=== PATIENT | male | born 1945 | race Caucasian/White ===

== ENCOUNTER → 2019-08-29 | Outpatient (CLI) | payer MEDICARE ==
--- NOTE | 2019-08-29 07:54 | CT ---
EXAMINATION TYPE: CT chest wo con DATE OF EXAM: 08/29/2019 COMPARISON: 05/22/2012 HISTORY: Solitary Pulmonary Nodule CT DLP: 684 mGycm. Automated Exposure Control for Dose Reduction was Utilized. TECHNIQUE: CT scan of the thorax is performed without IV contrast. FINDINGS: LUNGS: The lungs are grossly clear, there is no concerning parenchymal mass or nodule identified. T here is no pleural effusion or pneumothorax seen. The tracheobronchial tree is patent. Stable calcif ications in the right upper lobe compatible with granuloma. Additional granuloma posterior segment le ft upper lobe also stable. MEDIASTINUM: Lack of IV contrast is noted to limit evaluation for mediastinal and especially hilar ad enopathy. There are no definitive greater than 1 cm hilar or mediastinal lymph nodes. Coronary artery calcification noted. Calcified granulomas are seen in the hilum. Aorta of normal caliber with athero sclerotic changes. OTHER: Hepatic and splenic granuloma are seen. There is degenerative change spine. IMPRESSION: 1. Stable benign-appearing granuloma. 2. Coronary artery calcification and atherosclerotic changes.
== END | disposition home or self-care (01) ==
LOC: RADCTMAIN 07:13
PROVIDERS: ATTEND Nurse Practitioner Adult Health
DX: I25.10 Atherosclerotic heart disease of native coronary artery without angina pectoris (principal)
CPT/HCPCS: 71250

== ENCOUNTER → 2020-12-01 | Outpatient (CLI) | payer MEDICARE ==
--- NOTE | 2020-12-01 15:46 | US ---
EXAMINATION TYPE: US venous doppler duplex LE RT DATE OF EXAM: 12/01/2020 3:38 PM COMPARISON: NONE CLINICAL HISTORY: R Leg edema R60.0. right leg pain SIDE PERFORMED: Right TECHNIQUE: The lower extremity deep venous system is examined utilizing real time linear array sonog ruby with graded compression, doppler sonography and color-flow sonography. VESSELS IMAGED: Common Femoral Vein Deep Femoral Vein Greater Saphenous Vein * Femoral Vein Popliteal Vein Small Saphenous Vein * Proximal Calf Veins (* superficial vessels) Right Leg: Negative for DVT, probable Kang's cyst rt pop fossa= 4.4 x 0.6 x 2.3 cm Attempted to call Dr's office at time of exam, no answer IMPRESSION: 1. Right lower extremity ultrasound negative for deep venous thrombosis. 2. Popliteal cyst
== END | disposition home or self-care (01) ==
LOC: RADUSWWP 15:21
PROVIDERS: ATTEND Family Medicine
DX: R60.0 Localized edema (principal)

== ENCOUNTER → 2020-12-28 | Outpatient (CLI) | payer MEDICARE | END | disposition home or self-care (01) | LOC: RADUSWWP 13:21 | PROVIDERS: ATTEND Family Medicine | DX: M79.604 Pain in right leg (principal); M79.605 Pain in left leg | CPT/HCPCS: 93923 ==

== ENCOUNTER → 2022-01-30 | Outpatient (CLI) | payer MEDICARE ==
--- NOTE | 2022-01-30 11:13 | US ---
EXAMINATION TYPE: US prostate transrectal DATE OF EXAM: 01/30/2022 COMPARISON: NONE CLINICAL HISTORY: R97.20 ELEVATED PSA. This examination was performed using the transrectal probe. EXAM MEASUREMENTS: Gland Size: 6.1 x 3.0 x 5.3cm Volume: 49.4 Predicted PSA: 5.9 Actual PSA (if available):7.7 Heterogeneous gland without obvious mass. No peripheral zone lesions are seen with certainty. Central glandular calcifications. IMPRESSION: Prostatic glandular enlargement with discordant actual PSA. Consider follow-up versus bi opsy. Predicted PSA = volume x 0.12 ng/ml Calculated Volume = 0.5236 x L x W x H
== END | disposition home or self-care (01) ==
LOC: RADUSWWP 09:32
PROVIDERS: ATTEND Family Medicine
DX: N40.0 Benign prostatic hyperplasia without lower urinary tract symptoms (principal); R97.20 Elevated prostate specific antigen [PSA]
CPT/HCPCS: 76872

== ENCOUNTER → 2022-05-15 | Outpatient (CLI) | payer MEDICARE ==
[2022-05-15 22:25] LABS: Basophils # (A) 0.04 X 10*3/uL (0.00-0.10); Basophils % (A) 0.5 %; Eosinophils # (A) 0.36 X 10*3/uL (0.04-0.35); Eosinophils % (A) 4.1 %; HCT 47.4 % (39.6-50.0); HGB 15.7 g/dL (13.0-17.0); Immature Grans, Automated 0.6 %; Lymphocytes # (A) 2.81 X 10*3/uL (0.90-5.00); Lymphocytes % (A) 32.1 %; MCH 29.8 pg (27.0-32.0); MCHC 33.1 g/dL (32.0-37.0); MCV 89.9 fL (80.0-97.0); Mean Platelet Volume 10.2 fL (9.5-12.2); Monocytes # (A) 0.54 X 10*3/uL (0.20-1.00); Monocytes % (A) 6.2 %; NRBC Per 100 WBC 0 /100 WBCS (0.0-0.0); Neutrophils # (A) 4.96 X 10*3/uL (1.80-7.70); Neutrophils % (A) 56.5 %; Platelet Count 266 X 10*3/uL (140-440); RBC 5.27 X 10*6/uL (4.40-5.60); RDW 13.9 % (11.5-14.5); WBC 8.76 X 10*3/uL (4.50-10.00)
[2022-05-15 23:04] LABS: Appearance,Urine Clear (Clear); Bilirubin,Urine Negative (Negative); Blood,Urine Negative (Negative); Color,Urine Yellow (Yellow); Ketones,Urine Trace mg/dL (Negative); Nitrite,Urine Negative (Negative); Specific Gravity,Urine >1.035 (1.001-1.030); Urobilinogen,Urine 0.2 (0.2,1.0)
[2022-05-15 23:07] LABS: African American GFR (CKD) 101.1 (60.0-200.0); Anion Gap 9.9 mmol/L (10.00-18.00); BUN/Creat Ratio 19.39 Ratio (12.00-20.00); Blood Urea Nitrogen 15.3 mg/dL (9.0-27.0); Calcium 9.6 mg/dL (8.7-10.3); Non-African American GFR(CKD) 87.3 (60.0-200.0); Potassium 4.7 mmol/L (3.5-5.5)
== END | disposition home or self-care (01) ==
LOC: LABPAT 14:12
PROVIDERS: ATTEND Urology
DX: Z01.812 Encounter for preprocedural laboratory examination (principal); C61 Malignant neoplasm of prostate; R31.29 Other microscopic hematuria
CPT/HCPCS: 80048; 81003; 85025; 87086

== ENCOUNTER 2022-05-24 10:00 | Day surgery (SDC) | payer MEDICARE ==
--- NOTE | 2022-05-16 12:30 | P.HPIHPCON ---
History of Present Illness H&P Date: 05/16/22 Chief Complaint: Prostate cancer This is a 76-year-old male with history of [place] 7 (3+4_ prostate cancer, . I discussed with him for his prostate cancer the option of radiation versus robotic prostatectomy. Surgery were discussed with him in detail. He agreed to proceed with a robotic radical prostatectomy with possible pelvic lymph node dissection. Discussed with him the risk which includes but not limited to bleeding, infection, urinary incontinence, erectile dysfunction, strictures, potential of cancer recurrence. Potential of needing additional treatments. Discussed also potential of injury to nearby organs which includes but not limited to the bladder, rectum, bowel. Risk of anesthesia was discussed with him which includes but not limited to, heart attack, stroke, blood clots. He understood all the risk and agreed to proceed Consent for Procedure: I have explained the operation/procedure to the patient, including the risks, benefits, side effects, alternative therapies (including not receiving the proposed treatment or service), the likelihood of the patient achieving his/her goals, and potential recuperation problems for the procedure/sedation/analgesia, as well as any blood products, if indicated. I also explained to the patient the risks, benefits and side effects of the alternatives, as well as the risks related to not receiving the proposed procedure, care, treatment, or services. Past Medical History Past Medical History: Diabetes Mellitus, GERD/Reflux, Hyperlipidemia, Hypertension, Musculoskeletal Disorder, Sleep Apnea/CPAP/BIPAP Additional Past Medical History / Comment(s): BACK AND KNEE PAIN., DOES NOT USE C-PAP MACHINE. History of Any Multi-Drug Resistant Organisms: None Reported Past Surgical History: Appendectomy, Back Surgery, Heart Catheterization With Stent Additional Past Surgical History / Comment(s): DESIREE CATARACTS, BACK SURGERY WITH RODS & SCREWS. Past Anesthesia/Blood Transfusion Reactions: No Reported Reaction Date of Last Stent Placement:: 2013 Past Psychological History: No Psychological Hx Reported Past Alcohol Use History: Rare Additional Past Alcohol Use History / Comment(s): SMOKED CIGARETTES FOR 4-5 YEARS, SMOKES A PIPE NOW SINCE 1967. (48YRS) Past Drug Use History: None Reported - Past Family History Sister(s) Family Medical History: Cancer Medications and Allergies Home Medications Medication Instructions Recorded Confirmed Type Aspirin EC [Ecotrin] 81 mg PO DAILY 03/31/15 04/01/15 History Clopidogrel [Plavix] 75 mg PO DAILY 03/31/15 04/01/15 History Insulin Glargine [Lantus] 60 unit SQ HS 03/31/15 04/01/15 History Linagliptin [Tradjenta] 5 mg PO QAM 03/31/15 04/01/15 History Losartan [Cozaar] 25 mg PO HS 03/31/15 04/01/15 History Metoprolol Succinate [Toprol XL] 50 mg PO HS 03/31/15 04/01/15 History Omeprazole [PriLOSEC] 20 mg PO AC-BRKFST 03/31/15 04/01/15 History Simvastatin [Zocor] 40 mg PO HS 03/31/15 04/01/15 History glyBURIDE,MICRONIZED [Glyburide 6 mg PO QAM 03/31/15 04/01/15 History Micronized] metFORMIN HCL [Glucophage] 1,000 mg PO BID 03/31/15 04/01/15 History Hydrocodone/Acetaminophen [[place] 1 each PO Q6HR PRN #40 tab 04/01/15 Rx 5-325] Allergies Allergy/AdvReac Type Severity Reaction Status Date / Time Penicillins Allergy Unknown SORE ON Verified 03/31/15 08:40 NOSE Surgical - Exam - General no distress, no pain - Eyes normal ocular movement, no pale - ENT normal nares, normal mucosa - Respiratory normal expansion, normal respiratory effort - Abdomen Abdomen: soft, non tender - Psychiatric oriented to time, oriented to person, oriented to place Assessment and Plan Assessment: OR for robotic radical prostatectomy and possible pelvic lymph node dissection
[~2022-05-24 10:00] MED LIST: CLINDAMYCIN 600 MG in DEXTROSE 5% IN WATER 50 ML IVPB PRN; DEXAMETHASONE SOD PHOSPHATE 4 MG/ML 1 ML VIAL IV ONE; GENTAMICIN 120 MG in SODIUM CHLORIDE 0.9% 100 ML IVPB PRN; HEPARIN SODIUM,PORCINE/PF 5,000 UNIT/0.5 ML SYRINGE SQ PRN; HYDROmorphone 0.5 MG/0.5 ML SYRINGE IVP PRN; LIDOCAINE 1% (10MG/ML) FOR IV START INTRADERMA PRN; ONDANSETRON 4 MG/2 ML VIAL IVP ONE
[2022-05-24 11:05] LABS: Glucose,Whole Blood 119 mg/dL (70-110)
[2022-05-24] MEDS ORDERED: MIDAZOLAM 2 MG/2 ML VIAL IVP ONE (11:19)
[2022-05-24] MEDS: LACTATED RINGERS 1,000 ML IV SCH (11:39)
[2022-05-24] MEDS ORDERED: HEPARIN SODIUM,PORCINE 5,000 UNIT/ML 1 ML VIAL SQ ONE (11:48)
[2022-05-24] MEDS ORDERED: ROPIVACAINE 5 MG/ML 30 ML VIAL ONE (12:13)
[2022-05-24] MEDS ORDERED: SUCCINYLCHOLINE CHLORIDE 200 MG/10 ML VIAL IV ONE (12:13)
[2022-05-24] MEDS ORDERED: LIDOCAINE 2% INJ 20 MG/ML (2 ML VIAL) ONE (12:13)
[2022-05-24] MEDS ORDERED: GLYCOPYRROLATE 0.2 MG/ML 2 ML VIAL ONE (12:13)
[2022-05-24] MEDS ORDERED: NEOSTIGMINE 1 MG/ML 10 ML VIAL ONE (12:13)
[2022-05-24] MEDS ORDERED: ROCURONIUM 10 MG/ML (5 ML VIAL) IV ONE (12:13)
[2022-05-24] MEDS ORDERED: PHENYLEPHRINE-0.9% NACL SYG 1,000 MCG/10 ML SYRINGE ONE (12:13)
[2022-05-24] MEDS ORDERED: PROPOFOL 10 MG/ML 20 ML VIAL IV ONE (12:13)
[2022-05-24] MEDS ORDERED: MIDAZOLAM 2 MG/2 ML VIAL ONE (12:13)
[2022-05-24] MEDS ORDERED: HYDROmorphone 1 MG/ML 1 ML SYRINGE IVP PRN (12:13)
[2022-05-24] MEDS ORDERED: fentaNYL (PF) 50 MCG/ML 2 ML AMP ONE (12:13)
[2022-05-24] MEDS ORDERED: SODIUM CHLORIDE 0.9% (PF) 10 ML VIAL ONE (12:13)
[2022-05-24] MEDS ORDERED: HYDROmorphone (PF) 1 MG/ML ONE (12:13)
[2022-05-24] MEDS ORDERED: HYDROcodone/APAP 5-325MG 1 EACH TAB PO PRN (12:15)
[2022-05-24] MEDS ORDERED: SODIUM CHLORIDE 0.9% 1,000 ML IV SCH (12:30)
[2022-05-24] MEDS ORDERED: BUPIVACAINE (PF) 0.25% 30 ML VIAL SQ ONE (12:57)
--- NOTE | 2022-05-24 13:19 | P.ANPRN ---
Procedure Note - Anesthesia - Nerve Block Performed Left Adductor Canal Single Date of Procedure: 05/24/22 Procedure Start Time: : Procedure Stop Time: : Location of Patient: PreOp Indication: Acute Post-Operative Pain, Requested by Surgeon Sedation Type: Sedate with meaningful contact maintained Preparation: Sterile Prep Position: Supine Catheter: None Needle Types: Pajunk Needle Gauge: 20 Ultrasound used to visualize needle placement: Yes Ultrasound used to observe medication spread: Yes Injectate: 0.5% Ropivacaine (see comment for volume) (15) Blood Aspirated: No Pain Paresthesia on Injection Noted: No Resistance on Injection: Normal Image Stored and Saved: Yes Events: Uneventful and Well Tolerated Left iPack Single Time Out Performed: Yes Date of Procedure: 05/24/22 Procedure Start Time: Procedure Stop Time: : Location of Patient: PreOp Indication: Acute Post-Operative Pain, Requested by Surgeon Sedation Type: Sedate with meaningful contact maintained Preparation: Sterile Prep Position: Supine Needle Types: Pajunk Needle Gauge: 20 Ultrasound used to visualize needle placement: Yes Ultrasound used to observe medication spread: Yes Injectate: 0.5% Ropivacaine (see comment for volume) (15mL + 15mL NS) Blood Aspirated: No Pain Paresthesia on Injection Noted: No Resistance on Injection: Normal Image Stored and Saved: Yes Events: Uneventful and Well Tolerated
[2022-05-24 14:58] LABS: Glucose,Whole Blood 174 mg/dL (70-110)
--- NOTE | 2022-05-24 16:30 | P.OP ---
Date of Procedure: 05/24/22 Preoperative Diagnosis: prostate cancer Postoperative Diagnosis: same Procedure(s) Performed: Robotic-assisted laparoscopic radical prostatectomy Implants: none Anesthesia: ISABELLE Surgeon: Masoud Serna Estimated Blood Loss (ml): 100 Pathology: other (Prostate, bilateral seminal vesicles) Condition: stable Disposition: PACU Indications for Procedure: This is a 76-year-old male with history of [place] 7 (3+4_ prostate cancer, . I discussed with him for his prostate cancer the option of radiation versus robotic prostatectomy. Surgery were discussed with him in detail. He agreed to proceed with a robotic radical prostatectomy with possible pelvic lymph node dissection. Discussed with him the risk which includes but not limited to bleeding, infection, urinary incontinence, erectile dysfunction, strictures, potential of cancer recurrence. Potential of needing additional treatments. Discussed also potential of injury to nearby organs which includes but not limited to the bladder, rectum, bowel. Risk of anesthesia was discussed with him which includes but not limited to, heart attack, stroke, blood clots. He understood all the risk and agreed to proceed Description of Procedure: After preoperative antibiotics were started, the patient was taken to the operating room. Anesthesia was induced and the patient was placed in a supine position , with adequate padding of the pressure points, shoulders, back, legs and arms. He was then prepped and draped in the standard fashion. A critical pause was performed using two patient identifiers. A 16F orantes catheter was placed to gravity drainage. A pneumo-peritoneum was created with placement of a Veress needle to 20 mm Hg without complication, and a 8 Fr trocar was placed above the umbillicus. Under direct vision a 8mm robotic ports was placed lateral to each rectus slightly below the camera port. The left iliac fossa 8mm port was placed. The right retail store assistant right iliac fossa 12mm port and right paramedian 5mm portwere placed. After the patient was placed in the trendelenberg position, the robot was then docked to the 8mm robotic ports and then each robotic arm and tower was checked in relation to the patient's legs and hands to avoid inadvertent compression. The peritoneal cavity was inspected. An inverted U-shaped incision began laterally to the left medial umbilical ligament and extended high across the midline to the right umbilical ligament. The limbs of the "U" extended to the level of the vasa on both sides. We next developed the preperitoneal space and the space of Retzius. Cautery was used to dissected the bladder away from the prostate. After the anterior bladder neck was incised and the bladder entered the the posterior bladder neck was exposed and the ureteral orifces identified. The posterior bladder neck was then incised and dissected away from the prostate. The vas and the seminal vesicles were now exposed and dissected to their insertions into the prostate and were not spared. The posterior layer of the Denonvillier's fascia was incised to enter isaac the plane between prostate and perirectal fat. Each lateral pedicle was controlled with clips and cautery for hemostasis. Partial nerve preservation was performed bilaterally The puboprostatic ligament was incised where it inserted into the apex of the prostate and a plane between urethra and dorsal venous complex developed to expose the anterior urethral surface. The anterior wall of the urethra was transected with the cut setting a few millimeters distal to the apex of the prostate. The dorsal vein was ligated using 3-0 V lock The urethrovesical anastomosis was performed . the posterior denovillers was reapproximated using 3-0 V lock. A 6 and 6 inch 3-0 V-Lock suture was used to anastomose the urethra and bladder, starting at the 6:00 posterior position. Mucosa was secured in every stitch, to ensure a mucosa to mucosa anastomosis. The stitch was regularly cinched and the anastomosis tightened. Care was taken to not violate the ureteral orifices. The Orantes catheter was advanced, the bladder filled, and the anastomosis was tested, as described above. Anastomsis was watertight at 200 mL The periumbilical fascia was closed with 1-0-PDS suture in running fashion. All ports were closed with a subcuticular 4-0 monocryl and Dermabond. Sponge, instrument, and needle counts were correct at the end of the case x2. All speci mens including prostate and lymph nodes were sent to pathology for diagnosis and will be available in a week. The patient tolerated the surgery well and without complication. He awoke without difficulty and was taken to the recovery room in stable condition
[2022-05-24] MEDS ORDERED: hydrALAZINE HCL 20 MG/ML 1 ML VIAL IVP ONE (18:00)
[2022-05-24 18:38] LABS: Glucose,Whole Blood 151 mg/dL (70-110)
[2022-05-24] MEDS: metFORMIN 500 MG TAB PO SCH (20:12)
[2022-05-24] MEDS: KETOROLAC 15 MG/ML 1 ML VIAL IVP SCH ×2 (20:12→23:25)
[2022-05-24 20:45] LABS: Glucose,Whole Blood 140 mg/dL (70-110)
[2022-05-24] MEDS ORDERED: INSULIN DETEMIR (LEVEMIR) 100 UNIT/ML SYR SQ SCH (21:00)
[2022-05-24] MEDS ORDERED: METOPROLOL SUCCINATE (ER) 50 MG TAB.ER.24H PO SCH (21:00)
[2022-05-24] MEDS ORDERED: ATORVASTATIN 10 MG TAB PO SCH (21:00)
[2022-05-24] MEDS ORDERED: LINAGLIPTIN 5 MG TABLET PO SCH (21:00)
[2022-05-24] MEDS ORDERED: LOSARTAN 25 MG TAB PO SCH (21:00)
[2022-05-24] MEDS: HEPARIN SODIUM,PORCINE/PF 5,000 UNIT/0.5 ML SYRINGE SQ SCH (21:08)
[2022-05-25] MEDS: KETOROLAC 15 MG/ML 1 ML VIAL IVP SCH (05:29)
[2022-05-25] MEDS: HEPARIN SODIUM,PORCINE/PF 5,000 UNIT/0.5 ML SYRINGE SQ SCH (05:30)
[2022-05-25 06:25] LABS: Glucose,Whole Blood 101 mg/dL (70-110)
[2022-05-25 07:28] VITALS: BP 133/62; PULSE 56; RESP 18; TEMP 98.4
[2022-05-25] MEDS ORDERED: PANTOPRAZOLE 40 MG TABLET PO SCH (07:30)
[2022-05-25] MEDS: LACTATED RINGERS 1,000 ML IV SCH (08:28)
--- NOTE | 2022-05-25 08:28 | P.DS ---
Providers Expected date of discharge: 05/25/22 Attending physician: Masoud Serna MD Primary care physician: Baldev Sears Dwain - Discharge Diagnosis(es) (1) Prostate cancer Current Visit: Yes Status: Acute Hospital Course: The patient is a 76-year-old male with history of [place] 7 (3+4_ prostate cancer. On 05/24/22 he underwent a robotic-assisted laparoscopic radical prostatectomy with Dr. Serna. The patient tolerated the procedure well and was sent to the recovery room in good condition. POD #1 He is tolerating a regular diet. He is afebrile and his vital signs are stable. Meredith catheter draining tea colored urine with sediment. He reports his pain is well controlled. He is to follow up with Dr. Serna in the office on 06/02/22 for Meredith catheter removal. He was instructed to take his antibiotic one day prior to follow up visit. Impression and plan of care have been directed as dictated by the signing physician. Mira Stock nurse practitioner acting as scribe for signing physician. Mira Stock [facility] Palliative Care/Urology [place]ink [id number] Email: [email or web address] I personally performed and participated in the history, physical, the decision making, I agree with the assessment and plan of IMMIGRATION OFFICER Patient Condition at Discharge: Good Plan - Discharge Summary Discharge Rx Participant: No New Discharge Prescriptions: New HYDROcodone/APAP 5-325MG [[place] 5-325] 1 tab PO Q6HR PRN #6 tab PRN Reason: Pain Ketorolac [Toradol] 10 mg PO Q6HR PRN #10 tab PRN Reason: Pain Ciprofloxacin HCl [Cipro] 250 mg PO Q12HR 3 Days #6 tab Continue Simvastatin [Zocor] 20 mg PO HS Omeprazole [PriLOSEC] 40 mg PO AC-BRKFST Metoprolol Succinate [Toprol XL] 50 mg PO HS metFORMIN HCL [Glucophage] 1,000 mg PO BID-W/MEALS Insulin Glargine [Lantus Vial] 55 unit SQ HS Aspirin EC [Ecotrin Low Dose] 81 mg PO Q2D@2200 Losartan [Cozaar] 25 mg PO HS Ascorbic Acid [Vitamin C] 250 mg PO BID Empagliflozin [Jardiance] 25 mg PO HS Ferrous Sulfate [Iron] 325 mg PO QAM Cholecalciferol [Vitamin D3 (25 Mcg = 1000 Iu)] 25 mcg PO QAM Alogliptin Benzoate [Alogliptin] 25 mg PO HS Discharge Medication List Aspirin EC [Ecotrin Low Dose] 81 mg PO Q2D@2200 03/31/15 [History] Insulin Glargine [Lantus Vial] 55 unit SQ HS 03/31/15 [History] Losartan [Cozaar] 25 mg PO HS 03/31/15 [History] Metoprolol Succinate [Toprol XL] 50 mg PO HS 03/31/15 [History] Omeprazole [PriLOSEC] 40 mg PO AC-BRKFST 03/31/15 [History] Simvastatin [Zocor] 20 mg PO HS 03/31/15 [History] metFORMIN HCL [Glucophage] 1,000 mg PO BID-W/MEALS 03/31/15 [History] Alogliptin Benzoate [Alogliptin] 25 mg PO HS 05/22/22 [History] Ascorbic Acid [Vitamin C] 250 mg PO BID 05/22/22 [History] Cholecalciferol [Vitamin D3 (25 Mcg = 1000 Iu)] 25 mcg PO QAM 05/22/22 [History] Empagliflozin [Jardiance] 25 mg PO HS 05/22/22 [History] Ferrous Sulfate [Iron] 325 mg PO QAM 05/22/22 [History] Ciprofloxacin HCl [Cipro] 250 mg PO Q12HR 3 Days #6 tab 05/25/22 [Rx] HYDROcodone/APAP 5-325MG [[place] 5-325] 1 tab PO Q6HR PRN #6 tab 05/25/22 [Rx] Ketorolac [Toradol] 10 mg PO Q6HR PRN #10 tab 05/25/22 [Rx] Follow up Appointment(s)/Referral(s): Masoud Serna MD [STAFF PHYSICIAN] - 06/02/22 10:00 am Patient Instructions/Handouts: Meredith Catheter Placement and Care (DC), Urinary Leg Bag (GEN) Activity/Diet/Wound Care/Special Instructions: - Discharge home with Meredith catheter. Instruct how to use with overnight drainage bag as well as urinary leg bag - Increase fluid intake - Meredith catheter will be removed in the office during your follow up appointment - Begin taking Cipro (antibiotic) one day prior to Meredith catheter removal - Okay to shower, no tub baths - No lifting, driving, or strenuous activity - Abdominal wall ecchymosis and penoscrotal swelling are normal Discharge Disposition: HOME SELF-CARE
[2022-05-25] MEDS: metFORMIN 500 MG TAB PO SCH (08:32)
[2022-05-25 11:44] LABS: Glucose,Whole Blood 116 mg/dL (70-110)
== END 2022-05-25 12:50 | disposition home or self-care (01) ==
LOC: OR 10:00 → 4SSUR 18:12 → OR 05-25 12:50
PROVIDERS: ATTEND Urology
DX: C61 Malignant neoplasm of prostate (principal); G89.18 Other acute postprocedural pain; I10 Essential (primary) hypertension; E78.5 Hyperlipidemia, unspecified; E11.9 Type 2 diabetes mellitus without complications; K21.9 Gastro-esophageal reflux disease without esophagitis; Z90.49 Acquired absence of other specified parts of digestive tract; I25.10 Atherosclerotic heart disease of native coronary artery without angina pectoris; Z79.82 Long term (current) use of aspirin; Z79.899 Other long term (current) drug therapy; Z79.84 Long term (current) use of oral hypoglycemic drugs
CPT/HCPCS: 64488; 86900; 86901; 86850; 88309; 55866; J2250; J0330; J0360; J1644 ×3; J1100; J2710; J2405; J3010; J1580; J1170; J2795; J1885 ×2; J2370; J2704; J2001

== ENCOUNTER → 2024-02-28 | Outpatient (CLI) | payer MEDICARE ==
--- NOTE | 2024-02-28 17:13 | PE ---
EXAMINATION TYPE: PET CT fusion skull to thigh DATE OF EXAM: 02/28/2024 CLINICAL INDICATION:Male, 78 years old with history of C61 Prostate CA; TECHNIQUE: Following the intravenous administration of 6.36 mCi of Ga-68 Illuccix (PSMA), whole bod y images are performed from the skull base to the midthigh. Images are reviewed on the computer in t he coronal, axial, and sagittal planes. Reconstructed rotating images CT DLP: 830.4 mGycm, Automated exposure control for dose reduction was used. COMPARISON: CT 08/29/2019, PET/CT None, MRI: None, US: 01/30/2022 FINDINGS: Mediastinal SUV mean is 1.1. Hepatic parenchyma SUV mean is 6.7. SKULL BASE AND NECK: No suspicious radiotracer activity. Physiologic uptake within the left parotid gland duct. CHEST, MEDIASTINUM, AND HILAR REGION: No suspicious radiotracer activity. ABDOMEN AND PELVIS: Pancreatic tail 2.8 cm hypodense lesion without focal radiotracer uptake. Subcentimeter periaortic lymph node mild radiotracer uptake with a maximum SUV of 4.5. Postsurgical changes from prostatectomy. Urinary bladder is underdistended with possible extraluminal regions of radiotracer uptake versus diverticulum with a maximum SUV of 62.3. This is along the ante rior right aspect of the urinary bladder There our bilateral focal regions of radiotracer uptake within the prior location of the bilateral se joann vesicles with the left demonstrating a maximum SUV of 54.6. The right demonstrate a maximum SUV of 50.8. Nonenlarged right obturator lymph node with radiotracer activity demonstrating a maximum SUV of 8.9. MUSCULOSKELETAL STRUCTURES: Single focal radiotracer uptake within the right scapula with a maximum SUV of 6.4. OTHER CT: Bilateral aphakia. Right hilar calcified lymph nodes. Few scattered calcified granulomas wi thin the lungs. Mild coronary calcifications. Minimal bilateral gynecomastia. Calcified granulomas wi thin the spleen an liver. Cholelithiasis. Multilevel degenerative changes of the visualized spine. Po stsurgical changes of the lumbar spine with fixation hardware. Degenerative changes of bilateral SI j oints. Left gluteal calcified granuloma. IMPRESSION: 1. Postsurgical changes from prostatectomy with radiotracer activity identified along the left and r ight aspects of the rectovesicular space in the prior location of the seminal vesicles highly concern ing for metastasis. 2. Focal regions of radiotracer uptake surrounding the underdistended urinary bladder which may repr esent extraluminal metastatic deposits versus urinary bladder diverticulum. 3. Nonenlarged right obturator lymph node with radiotracer activity concerning for metastasis. Addit ional minimal radiotracer uptake within periaortic lymph nodes which could represent developing metas tasis. 4. Single right scapula focus of radiotracer uptake concerning for metastasis. No other suspicious o sseous radiotracer uptake. 5. Indeterminate pancreatic tail 2.8 cm cystic lesion. Further evaluation with MR abdomen with IV co ntrast (pancreatic mass protocol) is recommended. [facility], , 02/28/2024 5:10 PM
== END | disposition home or self-care (01) ==
LOC: RADPETMAIN 13:18
PROVIDERS: ATTEND Urology
DX: C61 Malignant neoplasm of prostate (principal); R93.7 Abnormal findings on diagnostic imaging of other parts of musculoskeletal system; Z98.890 Other specified postprocedural states
CPT/HCPCS: 78815; A9587

== ENCOUNTER → 2024-03-14 | Outpatient (CLI) | payer MEDICARE ==
[2024-03-14 11:07] LABS: African American GFR (CKD) >90 (>60 ml/min/1.73 sqM); Blood Urea Nitrogen 19 mg/dL (9-20); Non-African American GFR(CKD) >90 (>60 ml/min/1.73 sqM)
--- NOTE | 2024-03-14 12:42 | CT ---
EXAMINATION TYPE: CT abdomen w con DATE OF EXAM: 03/14/2024 COMPARISON: PET CT February 28, 2024 CLINICAL INDICATION: Male, 78 years old with history of C25.9 pancreatic mass; PHH, abdominal pain, h x of prostate ca TECHNIQUE: Performed with Oral Contrast and with IV Contrast, patient injected with 100 mL of Isovue 300. CT DLP: 1045 mGycm Automated exposure control for dose reduction was used. FINDINGS: LUNG BASES: Three-vessel coronary artery calcifications are redemonstrated.. LIVER/GB: A few scattered punctate calcifications throughout the liver are redemonstrated. PANCREAS: In the distal body of the pancreas there is lesion measuring 3.2 x 2.6 cm on image 33. No d uctal dilatation. There are likely vascular calcification seen anterior and medial to this. SPLEEN: Multiple small calculations throughout the spleen are again seen. Findings consistent with un derlying granulomatous disease.. ADRENALS: No significant abnormality is seen. KIDNEYS: No significant abnormality is seen. BOWEL: No significant abnormality is seen. LYMPH NODES: No significant abnormality is seen. OSSEOUS STRUCTURES: Postsurgical change in the mid to lower lumbar spine is redemonstrated. FREE AIR: No free air is visualized. OTHER: [id number] peripheral calcified plaque of the aorta extends into branch vessels IMPRESSION: CONFIRMATION OF DISTAL PANCREATIC BODY CYSTIC LESION MEASURING 3.2 X 2.6 CM, DIFFERENTIAL INCLUDES CY STIC NEOPLASM, ADVISE CORRELATION WITH PANCREATIC LAB VALUES. CONSIDER MRI/MRCP EVALUATION IF FEASIBL E TO FURTHER EVALUATE AND ADVISED SPECIALIST REFERRAL. [facility], , 03/14/2024 12:40 PM
== END | disposition home or self-care (01) ==
LOC: RADCTMAIN 10:17
PROVIDERS: ATTEND Urology
DX: C25.9 Malignant neoplasm of pancreas, unspecified (principal); K86.2 Cyst of pancreas
CPT/HCPCS: 82565; 84520; 74160; 36415; Q9967

== ENCOUNTER → 2024-06-05 | Outpatient (CLI) | payer MEDICARE ==
--- NOTE | 2024-06-05 10:24 | US ---
EXAMINATION TYPE: US arterial LE multi level DATE OF EXAM: 06/05/2024 10:13 AM COMPARISONS: None. CLINICAL INDICATION: Male, 78 years old with history of I73.9 PERIPHERAL VASCULAR DISEASE; Pain bilat eral legs, worse on the left. Numbness bilateral feet TECHNIQUE: Systolic pressures were taken of the upper and lower extremity arteries with ankle-brachia l indices and toe brachial indices calculated bilaterally. History of: Smoker: yes Hypertension: yes Diabetic: yes Hyperlipidemia: unknown TIA/CVA: no Previous Vascular Surgery: cardiac stent 2013 CT: yes Vascular Ulcers: no Gangrene: no FINDINGS: Doppler Waveforms: Right: Multiphasic waveforms within the femoral and popliteal arteries. Monophasic waveforms within t he posterior tibial, dorsalis pedis, and digits. Left: Multiphasic waveforms within the femoral and popliteal arteries. Monophasic waveforms within th e posterior tibial, dorsalis pedis, and digits. Brachial Artery systolic pressure: Right: 165 Left: 157 Posterior Tibial artery systolic pressure: Right: 167 Left: 124 Dorsalis Pedis artery systolic pressure: Right: 170 Left: 137 Toe artery systolic pressure: Right: 94 Left: 79 Ankle-Brachial Indices: Right: 1.03 Left: 0.83 Toe Brachial Indices: Right: 0.57 Left: 0.48 (Normal > 0.6; Mild 0.35 - 0.59, Moderate 0.12 - 0.34, Severe <0.12) IMPRESSION: DAVINA: Right: Normal ankle brachial index however mild toe brachial index value suggesting distal mild perip heral arteriovascular disease. Left: Mild peripheral arteriovascular disease. [facility], , 06/05/2024 10:21 AM
== END | disposition home or self-care (01) ==
LOC: RADUSWWP 09:15
PROVIDERS: ATTEND Family Medicine
DX: I73.9 Peripheral vascular disease, unspecified (principal)
CPT/HCPCS: 93923